=== PATIENT | male | born 1965 | race African-American/Black ===

== ENCOUNTER 2020-09-19 12:59 | Observation (INO) ==
[2020-09-19 13:37] LABS: Eosinophils % 0.8 % (0.00-10.9); Hematocrit 18.5 VOL% (42.0-52.0); Hemoglobin 6.7 GM/DL (14.0-18.0); Immature Granulocytes % 0.3 %; Immature Granulocytes Absolute 0.01 #; Lymphocytes # 1.4 10*3/uL (1.4-4.0); Lymphocytes % 38.5 % (21.2-54.2); Mean Corpuscular HGB Conc 36.2 GM/DL (32-36); Mean Corpuscular Volume 117.8 FL (87-102); Mean Platelet Volume 10.6 FL (9.6-12.0); Monocytes % 3.4 % (1.7-12.7); Platelet Count 125 T/CUMM (130-400); Red Blood Count 1.57 MC/CUMM (3.8-5.5); Red Cell Distribution Width 15.6 % (9.3-17.3); White Blood Count 3.5 T/CUMM (4-12)
[2020-09-19 14:18] LABS: Bilirubin,Urine Negative (Negative); Blood, Urine Negative (Negative); Glucose,Urine (UA) Negative (Negative); Hyaline Casts,Urine 3 /LPF (0-3); Ketones,Urine 5 mg/dL (Negative); Mucus,Urine Moderate /LPF (Occasional); Nitrite,Urine Negative (Negative); Protein,Urine Negative; RBC,Urine 1 /HPF (0-4); Urine Appearance CLEAR (Clear); Urine Color Yellow (Yellow); Urine Specific Gravity 1.023 (1.001-1.035); WBC,Urine <1 /HPF (0-6)
[2020-09-19 14:23] LABS: Albumin 3.6 G/DL (3.4-5.0); Bilirubin,Total 1.3 MG/DL (0.2-1.0); Calcium 8.8 MG/DL (8.5-10.1); Osmolality,Calculated 272.8 MOS/KG (273-304); Total Protein 7.2 G/DL (6.4-8.2)
[2020-09-19 14:33] LABS: % Iron Saturation 59.9 % (18-50)
[2020-09-19 14:38] LABS: Folate 10.6 NG/ML (5.38-24.0)
[2020-09-19 14:48] LABS: Barbiturates Screen,Urine Negative (Negative); Benzodiazepines Screen,Urine Negative (Negative); Cannabinoid Screen,Urine Negative (Negative); Opiate Screen,Urine Negative (Negative); Phencyclidine Screen,Urine Negative (Negative)
[2020-09-19 14:59] LABS: Hypersegmented Neutrophil 1+; Hypochromasia 2+; Lymphocytes 46 % (20-55); Macrocytosis 3+; Segmented Neutrophils 50 % (50-85); Total Cells Counted 100
[2020-09-19 15:00] LABS: Anisocytosis 2+; Platelet Estimate Adequate; Poikilocytosis 1+; Reactive Lymphocytes Few
[2020-09-19] MEDS ORDERED: DEXTROSE 50% 25 GM/50 ML VIAL IV PRN (15:28)
[2020-09-19] MEDS ORDERED: ONDANSETRON 4 MG/2 ML VIAL IV PRN (15:28)
[2020-09-19] MEDS ORDERED: ACETAMINOPHEN 325 MG TABLET PO PRN (15:28)
[2020-09-19] MEDS ORDERED: GLUCAGON 1 MG VIAL IM PRN (15:28)
[2020-09-19] MEDS ORDERED: SODIUM CHLORIDE 0.9% 1,000 ML IV PRN (16:53)
[2020-09-19] MEDS: CYANOCOBALAMIN 500 MCG TABLET PO SCH (17:00)
[2020-09-19] MEDS: PANTOPRAZOLE 40 MG TABLET PO SCH (17:00)
[2020-09-19] MEDS: PROPRANOLOL 10 MG TABLET PO SCH (20:53)
[2020-09-19] MEDS ORDERED: OLANZapine 5 MG TABLET PO SCH (21:00)
[2020-09-20 05:55] LABS: Eosinophils % 0.3 % (0.00-10.9); Hematocrit 23.3 VOL% (42.0-52.0); Hemoglobin 8.5 GM/DL (14.0-18.0); Immature Granulocytes % 1.1 %; Immature Granulocytes Absolute 0.04 #; Lymphocytes % 26.9 % (21.2-54.2); Mean Corpuscular HGB Conc 36.5 GM/DL (32-36); Mean Platelet Volume 10.6 FL (9.6-12.0); Monocytes % 3.3 % (1.7-12.7); Neutrophils % 68.4 % (38.7-73.9); Platelet Count 111 T/CUMM (130-400); Red Blood Count 2.22 MC/CUMM (3.8-5.5); Red Cell Distribution Width 22.3 % (9.3-17.3); White Blood Count 3.6 T/CUMM (4-12)
[2020-09-20 06:17] LABS: Lymphocytes 25 % (20-55); Segmented Neutrophils 73 % (50-85); Total Cells Counted 100
[2020-09-20 06:19] LABS: Hypochromasia 2+
[2020-09-20 06:20] LABS: Anisocytosis 1+; Macrocytosis 1+; Ovalocytes Slight; Platelet Estimate Adequate
[2020-09-20 06:40] LABS: Calcium 8.5 MG/DL (8.5-10.1); Osmolality,Calculated 274.7 MOS/KG (273-304); Potassium 4.2 MMOL/L (3.5-5.1); Thyroid Stimulating Hormone 1.12 uIU/ml (0.358-3.74)
[2020-09-20] MEDS: CYANOCOBALAMIN 500 MCG TABLET PO SCH (08:17)
[2020-09-20] MEDS: PANTOPRAZOLE 40 MG TABLET PO SCH (08:18)
[2020-09-20] MEDS: PROPRANOLOL 10 MG TABLET PO SCH (08:18)
[2020-09-20] MEDS ORDERED: VENLAFAXINE XR 75 MG CAPSULE PO SCH (09:00)
[2020-09-20 12:12] VITALS: BP 109/72
== END 2020-09-20 16:00 ==
LOC: N.ED 12:59 → N.EDINP 12:59 → N.4E 18:11
PROVIDERS: ADMIT Hospitalist; ATTEND Hospitalist